=== PATIENT | female | born 1955 | race Hispanic/Latino ===

== ENCOUNTER → 2017-07-31 | Outpatient (CLI) | payer OTHER ==
[~2017-07-31] MED LIST: ATENOLOL100 MG PO; BENICAR20 MG PO; COLESTIPOL HCL1 GM PO; MULTI-VITAMIN1 EACH PO; PANTOPRAZOLE SO40 MG PO; RANITIDINE HCL300 MG PO
--- NOTE | 2017-07-31 10:00 | Diagnostic Imaging Report ---
PROCEDURE:LIMITED ABDOMINAL ULTRASOUND COMPARISON:None. INDICATIONS:Abnormal liver enzymes. FINDINGS: Liver: 14.9 cm. Increased hepatic parenchymal echogenicity. No focal mass. Simple cyst is present in the right lobe of the liver. Main portal vein: 5.6 mm. Hepatopedal flow. Gallbladder: Cholecystectomy. Common Bile Duct: 5.5 mm. No echogenic filling defect. Sonographic Yee's sign: Negative. Right kidney: 11.4 cm. No solid or cystic mass, echogenic calculi, or hydronephrosis. Normal parenchymal echogenicity. Simple cyst in the right kidney. The pancreas, aorta, and inferior vena cava were insufficiently visualized for comment secondary to overlying bowel gas. Ascites: None. CONCLUSION: 1. No acute sonographic abnormality. 2. Hepatic steatosis. Dictated by: Lambert Harrison M.D. on 07/31/2017 at 10:00 Electronically approved by: Lambert Harrison M.D. on 07/31/2017 at 10:00
== END ==
LOC: US 07:59
PROVIDERS: ATTEND Family Medicine
DX: R74.8 Abnormal levels of other serum enzymes (principal)
CPT/HCPCS: 76705